=== PATIENT | male | born 1960 | race Caucasian/White ===

== ENCOUNTER 2018-10-10 11:41 | Emergency (ER) | payer SELFPAY ==
[2018-10-10 12:10] VITALS: BP 130/76; TEMP 97.7
[2018-10-10] MEDS ORDERED: IPRATROPIUM/ALBUTEROL 3 ML VIAL NEB ONE (12:13)
[2018-10-10 12:30] VITALS: O2SAT 92
[2018-10-10] MEDS ORDERED: SODIUM CHLORIDE 0.9% 500ML 500 ML IVS ONE (12:32)
--- NOTE | 2018-10-10 12:59 | RAD ---
EXAM DESCRIPTION: Chest,2 Views CLINICAL HISTORY: SOB COMPARISON: None TECHNIQUE: PA/lateral FINDINGS: Heart size is normal with normal pulmonary vascularity. No pleural effusion or pneumothorax. Extensive infiltrates throughout the lungs to be acute or chronic. No old studies available for comparison. Differential considerations would include diffuse pulmonary fibrosis or interstitial pneumonia. Lateral view shows intact sternum and T-spine. IMPRESSION: Diffuse interstitial infiltrates. See above. Electronically signed by: Xavier Ziegler MD 10/10/2018 12:55 PM VENDER
--- NOTE | 2018-10-10 13:03 | ED.PDOC ---
History of Present Illness - General Chief Complaint: Respiratory Problem Stated Complaint: SOB, fatigue Time Seen by Provider: 10/10/18 12:30 Source: patient Exam Limitations: no limitations - History of Present Illness Initial Comments: Heladio Huggins 58 y/o male stated that she feels SOB for the last 2 months even walking for short distances.has weight loss 16 pounds last 6 months and loss of appetite.Denies any medical problem .No cough,Smoke 1PPD cigaret for 20 years but quit 2017;No occupational exposure.had been in [place] for dental procedures.He stated sob symptoms started almost a year ago and got worse the last 2 months.No hemoptysis drove from [place] last night. Timing/Duration: other - 2 months Severity: moderate Activities at Onset: none Possible Cause: chronic episodes Improving Factors: nothing Worsening Factors: nothing Associated Symptoms: denies symptoms Respiratory Risk Factors: no cause identified Allergies/Adverse Reactions: Allergies NO KNOWN ALLERGY Allergy (Verified 10/10/18 12:11) Home Medications: Ambulatory Orders NK 10/10/18 Review of Systems - Review of Systems Constitutional: States: no symptoms reported EENTM: States: no symptoms reported Respiratory: States: see HPI Cardiology: States: no symptoms reported Gastrointestinal/Abdominal: States: no symptoms reported Genitourinary: States: no symptoms reported Musculoskeletal: States: no symptoms reported Skin: States: no symptoms reported Neurological: States: no symptoms reported Past Medical History (General) - Patient Medical History Hx Stroke: No Hx of COPD: No Hx Congestive Heart Failure: No Hx Diabetes: No Surgical History: no surgical history - Vaccination History Hx Tetanus, Diphtheria Vaccination: No Hx Pneumococcal Vaccination: No Immunizations Up to Date: No - Social History Hx Tobacco Use: Yes Hx Alcohol Use: Yes - Moderate Hx Substance Use: No Hx Substance Use Treatment: No Hx Physical Abuse: No Hx Emotional Abuse: No Family Medical History - Family History Father Living Status: Hx Cardiac Disease: Yes - Heart attack Mother Family History: Unknown Living Status: Unknown Physical Exam - Physical Exam General Appearance: Alert, Comfortable, No apparent distress Eyes, Ears, Nose, Throat Exam: normal ENT inspection, TMs normal Neck: full range of motion, supple, normal inspection Respiratory: chest non-tender, no respiratory distress, decreased breath sounds Cardiovascular/Chest: normal peripheral pulses, regular rate, rhythm, no murmur Peripheral Pulses: radial,right: 2+, radial,left: 2+ Gastrointestinal/Abdominal: non tender, soft, no organomegaly Extremity: no pedal edema, no calf tenderness Neurologic: alert, oriented x 3 Skin Exam: normal color, warm/dry Lymphatic: no adenopathy Progress - Progress Progress: 10/10/18 13:07 10/10/18 12:16 ABG [Arterial Blood Gas] Stat 10/10/18 12:31 HIV-1,2 ANTIBODY RAPID TEST Stat URINALYSIS Stat 10/10/18 12:43 B-TYPE NATRIURETIC PEPTIDE/BNP Stat CARDIAC PANEL,ER Stat HEPATIC FUNCTION PANEL Stat LACTIC ACID Stat D-DIMER,QUANTITATIVE Stat 10/10/18 12:51 HIV-1/2 AB W/REFLEX EIA Routine 10/10/18 13:05 LD-L/LDH Stat URINE DRUG SCREEN, 7 ASSAY Stat Laboratory Results - last 24 hr 10/10/18 12:43 WBC 7.8 RBC 4.95 Hgb 14.1 Hct 42.9 MCV 86.7 MCH 28.6 MCHC 32.9 L RDW 15.9 H Plt Count 323 MPV 7.1 L Absolute Neuts (auto) 6.60 Absolute Lymphs (auto) 1.00 Absolute Monos (auto) 0.20 Absolute Eos (auto) 0.00 Absolute Basos (auto) 0.00 Neutrophils % 84.7 H Lymphocytes % 12.4 L Monocytes % 2.4 Eosinophils % 0.0 L Basophils % 0.5 Sodium 133 L Potassium 4.2 Chloride 102 Carbon Dioxide 22 Anion Gap 13.2 Calcium 8.4 - Results/Orders Results/Orders: 10/10/18 12:16 ABG [Arterial Blood Gas] Stat 10/10/18 12:31 HIV-1,2 ANTIBODY RAPID TEST Stat 10/10/18 12:43 ERYTHROCYTE SEDIMENTATION RATE Stat 10/10/18 13:05 URINE DRUG SCREEN, 7 ASSAY Stat 10/10/18 13:17 HIV-1/2 AB W/REFLEX EIA Routine 10/10/18 14:11 CATHI IFA Screen w/Reflex Stat RHEUMATOID FACTOR Routine 10/10/18 15:22 URINE DRUG SCREEN, 7 ASSAY Stat 10/10/18 Lunch Regular Diet Laboratory Results - last 24 hr 10/10/18 10/10/18 10/10/18 12:43 12:43 12:43 WBC 7.8 RBC 4.95 Hgb 14.1 Hct 42.9 MCV 86.7 MCH 28.6 MCHC 32.9 L RDW 15.9 H Plt Count 323 MPV 7.1 L Absolute Neuts (auto) 6.60 Absolute Lymphs (auto) 1.00 Absolute Monos (auto) 0.20 Absolute Eos (auto) 0.00 Absolute Basos (auto) 0.00 Neutrophils % 84.7 H Lymphocytes % 12.4 L Monocytes % 2.4 Eosinophils % 0.0 L Basophils % 0.5 PT 10.4 INR 1.04 PTT (SP) 29.6 D-Dimer, Quantitative 0.81 H* Sodium 133 L Potassium 4.2 Chloride 102 Carbon Dioxide 22 Anion Gap 13.2 BUN 16 Creatinine 0.71 BUN/Creatinine Ratio 22.5 H Random Glucose 108 H Serum Osmolality 268.1 L Lactic Acid 0.9 Calcium 8.4 Magnesium 1.8 Total Bilirubin 0.6 Direct Bilirubin < 0.1 Indirect Bilirubin 0.5 AST 25 ALT 15 Alkaline Phosphatase 71 LD Total Creatine Kinase 30 L CK-MB (CK-2) 1.9 CK-MB (CK-2) % Not Reportable Troponin I 0.03 B-Natriuretic Peptide 197.0 H Serum Total Protein 7.0 Albumin 2.4 L Urine Color Urine Appearance Urine pH Ur Specific [place] Urine Protein Urine Glucose (UA) Urine Ketones Urine Blood Urine Nitrite Urine Bilirubin Urine Urobilinogen Ur Leukocyte Esterase Urine RBC Urine WBC Ur Epithelial Cells Urine Bacteria 10/10/18 10/10/18 13:08 14:07 WBC RBC Hgb Hct MCV MCH MCHC RDW Plt Count MPV Absolute Neuts (auto) Absolute Lymphs (auto) Absolute Monos (auto) Absolute Eos (auto) Absolute Basos (auto) Neutrophils % Lymphocytes % Monocytes % Eosinophils % Basophils % PT INR PTT (SP) D-Dimer, Quantitative Sodium Potassium Chloride Carbon Dioxide Anion Gap BUN Creatinine BUN/Creatinine Ratio Random Glucose Serum Osmolality Lactic Acid Calcium Magnesium Total Bilirubin Direct Bilirubin Indirect Bilirubin AST ALT Alkaline Phosphatase LD Total 255 H Creatine Kinase CK-MB (CK-2) CK-MB (CK-2) % Troponin I B-Natriuretic Peptide Serum Total Protein Albumin Urine Color Yellow Urine Appearance Clear Urine pH 6.0 Ur Specific [place] 1.010 Urine Protein Trace Urine Glucose (UA) Negative Urine Ketones Negative Urine Blood Negative Urine Nitrite Negative Urine Bilirubin Negative Urine Urobilinogen 0.2 Ur Leukocyte Esterase Negative Urine RBC 0 Urine WBC 0 Ur Epithelial Cells 0-1 Urine Bacteria 0 - EKG/XRAY/CT EKG: Sinus, nonspecific ST T wave Chg Comments: HR-85 XRAY: chest - diffuse interstitial infiltrates CT Ordered: Yes - interstitial opacities both lungs Departure - Departure Clinical Impression: Idiopathic interstitial pneumonia, not otherwise specified, Hypoxemia requiring supplemental oxygen Dyspnea Qualifiers: Dyspnea type: unspecified Qualified Code(s): R06.00 - Dyspnea, unspecified Time of Disposition: 15:27 Disposition: Transfer to Hospital Condition: Fair Departure Forms: Patient Portal Self Enrollment Referrals: Gabo Medina MD [Primary Care Provider] - 1-2 Weeks Home Medications: Ambulatory Orders NK 10/10/18 Transfer to Outside Facility - Transfer Information Accepting Provider:: Dr. 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
--- NOTE | 2018-10-10 14:46 | CT ---
Procedure: CT CHEST ANGIOGRAPHY WITH IV CONTRAST Exam Date: 10/10/2018 Ordering Provider: Laith Fields Clinical Indication: sob/elevated d dimer Comparison: 10/10/2018 chest x-ray Technique: Using a multislice scanner, sequential axial imaging was obtained in the thorax from the level of the thoracic inlet through the lung bases after intravenous contrast administration. The contrast bolus was timed to evaluate the pulmonary arteries for thrombus. MIP coronal and sagittal reformatted images were obtained. This exam was performed according to our departmental dose optimization program which includes use of automated exposure control, adjustment of the mA and/or kV according to patient size and/or use of iterative reconstruction technique. Findings: There are no pulmonary emboli. Lungs and large airways: Extensive diffuse honeycombing with groundglass opacities bilaterally. Question superimposed infiltrate in both lower lobes. Scarring in the lingula and right middle lobe. No lung mass. Mediastinum and jeremi: Enlarged precarinal lymph node measures 1.0 x 1.5 cm. Borderline enlarged AP window and hilar nodes. Pleura: No pleural effusion. No pneumothorax. Heart and great vessels: Heart is not enlarged. Trace pericardial effusion. No aortic aneurysm. Dilatation of the main pulmonary artery suggesting pulmonary arterial hypertension. Chest wall, lower neck, axillae: No axillary lymphadenopathy by size criteria. Upper abdomen: Nonacute Bones: No destructive bony lesions. IMPRESSION: 1. No pulmonary embolism. 2. Lung findings with differential considerations including but not limited to hypersensitivity pneumonitis, nonspecific interstitial pneumonia or idiopathic pulmonary fibrosis. There is question of superimposed acute infiltrate in both lower lobes. 3. Enlarged precarinal lymph node and borderline enlarged AP window and hilar lymph nodes. Attention on follow-up. 4. Dilatation of the main pulmonary artery suggesting pulmonary arterial hypertension. Electronically signed by: Conner Hamilton MD 10/10/2018 2:43 PM [employer]ACK [employer]ER
== END 2018-10-10 14:15 | disposition short-term general hospital (02) ==
LOC: ER 11:41
DX: J84.111 Idiopathic interstitial pneumonia, not otherwise specified (principal); R09.02 Hypoxemia; Z87.891 Personal history of nicotine dependence
CPT/HCPCS: 36600; 71046; 71275; 80048; 80076; 80307; 81001; 82550; 82553; 82803; 82805; 83605; 83615; 83880; 84484; 85025; 85379; 85610; 85651; 85730; 86701; 93005; 94640; 94760; J7040; J7620